=== PATIENT | male | born 1995 | race African-American/Black ===

== ENCOUNTER 2021-11-13 22:14 | Emergency (ER) | payer OTHER ==
[~2021-11-13] VITALS: Ht 182.9 cm; Wt 81.6 kg
[2021-11-13] MEDS ORDERED: TDAP DIPH,PERTUSS,TET VAC/PF 0.5 ML DISP.SYRIN IM ONE ×2 (23:45→23:53)
[2021-11-13] MEDS ORDERED: LIDOCAINE HCL 1% 20 ML VIAL IJ ONE (23:45)
--- NOTE | 2021-11-14 00:11 | NUR ---
wound irrigated and cleaned by RN. MD evaluated wound and placed sutures. ACI provided in written and verbal form by MD to pt, who verbalised understanding. RN reiterated MD instructions and answered any remaining questions pt had. pt advised to take OTC acetimenaphen or ibprofen as needed for pain. S/S of infection explained to pt and pt educated on variances to wound that would necessitate immediate medical intervention, as well given timeframe for healing and general description of wound apperance while healing. pt out of dept with steady gait under his power, NAD noted
[2021-11-14 00:21] VITALS: BP 127/59
== END 2021-11-14 00:22 | disposition home or self-care (01) ==
LOC: ER 22:18
DX: S01.111A Laceration without foreign body of right eyelid and periocular area, initial encounter (principal); W21.89XA Striking against or struck by other sports equipment, initial encounter; Y93.67 Activity, basketball; Y92.310 Basketball court as the place of occurrence of the external cause
CPT/HCPCS: 12011; 90471; 90715; 99283; J3490; A4217; A4663